=== PATIENT | male | born 1985 | race American Indian/Alaskan Native ===

== ENCOUNTER 2021-01-29 23:41 | Emergency (ER) | payer SELFPAY ==
[2021-01-29] MEDS ORDERED: SODIUM CHLORIDE 0.9% 1000 ML 1,000 ML IV ONE (23:56)
[2021-01-29] MEDS ORDERED: TETANUS,DIPH,PERTUSS(ACELL) VACCINE 0.5 ML SYRINGE IM ONE (23:56)
[2021-01-30] MEDS ORDERED: NALOXONE 2 MG/2 ML INJ IV ONE (00:01)
[2021-01-30] MEDS ORDERED: SODIUM CHLORIDE 0.9% 1000 ML 1,000 ML IV ONE (00:01)
--- NOTE | 2021-01-30 00:04 | Emergency Department Report ---
History of Present Illness - General Chief Complaint: Overdose Stated Complaint: OVERDOSE Time Seen by Provider: 01/29/21 23:52 Source: patient, EMS Mode of arrival: Stretcher Limitations: No Limitations - History of Present Illness Initial Comments: 36-year-old male presents to ED following accidental overdose on heroin. Patient reports history of heroin abuse. States he has been clean for 2 months until tonight. Patient was found passed out on the [employer] bus. Patient was given Narcan 0.4 mg x 3 doses. Patient currently somewhat lethargic, but easily arousable. Patient is A&O x3. Complaint: accidental overdose -: This evening Context: Accidental Overdose: wanted to get high Treatments Prior to Arrival: narcan - Related Data Allergies Allergy/AdvReac Type Severity Reaction Status Date / Time No Known Allergies Allergy Unverified 01/29/21 23:47 ED Review of Systems ROS: Stated complaint: OVERDOSE Other details as noted in HPI Comment: All other systems reviewed and negative Psychiatric: denies: suicidal thoughts ED Past Medical Hx - Past Medical History Previous Medical History?: No - Surgical History Past Surgical History?: No - Social History Smoking Status: Current Every Day Smoker Substance Use Type: Alcohol, Heroin, Marijuana ED Physical Exam - General Limitations: No Limitations General appearance: lethargic - Head Head exam: Present: atraumatic, normocephalic - Eye Eye exam: Present: normal appearance, PERRL, EOMI - ENT ENT exam: Present: mucous membranes moist - Neck Neck exam: Present: normal inspection - Respiratory Respiratory exam: Present: normal lung sounds bilaterally. Absent: respiratory distress - Cardiovascular Cardiovascular Exam: Present: regular rate, normal rhythm - GI/Abdominal GI/Abdominal exam: Present: soft. Absent: distended, tenderness - Extremities Exam Extremities exam: Present: normal inspection - Neurological Exam Neurological exam: Present: oriented X3, other (lethargic but arousable). Absent: motor sensory deficit - Psychiatric Psychiatric exam: Present: normal affect, normal mood - Skin Skin exam: Present: warm, dry, intact, normal color ED Course Vital Signs 01/29/21 01/29/21 01/30/21 23:49 23:51 00:00 Temperature 97.9 F Pulse Rate 91 H 97 H Respiratory 15 15 16 Rate Blood Pressure 148/83 O2 Sat by Pulse 96 96 Oximetry 01/30/21 01/30/21 01/30/21 00:16 00:30 00:46 Temperature Pulse Rate 102 H 114 H 93 H Respiratory 20 27 H 15 Rate Blood Pressure 145/88 152/98 161/97 O2 Sat by Pulse 95 97 100 Oximetry - Reevaluation(s) Reevaluation #1: 01/30/21 01:28 Pt is fully alert and oriented x3. Declines mental health consult at this time. No SI. Accidental overdose. Will still give outpt resources. Critical care attestation.: If time is entered above; I have spent that time in minutes in the direct care of this critically ill patient, excluding procedure time. ED Disposition Clinical Impression: Accidental heroin overdose Disposition: DC-01 TO HOME OR SELFCARE Is pt being admited?: No Condition: Stable Instructions: Opioid Overdose Referrals: PRIMARY CARE [Primary Care Provider] - 3-5 Days Time of Disposition: 01:29
[2021-01-30 01:49] VITALS: BP 146/89
== END 2021-01-30 01:49 | disposition home or self-care (01) ==
LOC: ED 23:41
DX: T40.1X1A Poisoning by heroin, accidental (unintentional), initial encounter (principal); F17.200 Nicotine dependence, unspecified, uncomplicated; F12.90 Cannabis use, unspecified, uncomplicated; Y92.89 Other specified places as the place of occurrence of the external cause
CPT/HCPCS: 96361; 96374; 99284; J2310; J7030